=== PATIENT | female | born 2000 | race African-American/Black ===

== ENCOUNTER 2022-12-31 12:52 | Emergency (ER) | payer OTHER, SELFPAY ==
[2022-12-31] MEDS ORDERED: Acetaminophen 325 MG TAB ONE (13:36)
[2023-01-01 13:51] LABS: Reference Lab Name LABCORP
[2023-01-01 13:52] LABS: Ref Lab Test Ordered Ct/GC NAA throat
== END 2022-12-31 14:40 | disposition home or self-care (01) ==
LOC: ERS 12:52
DX: J02.9 Acute pharyngitis, unspecified (principal); R13.10 Dysphagia, unspecified
CPT/HCPCS: 87081; 87430; 99283

== ENCOUNTER 2024-07-24 10:52 | Emergency (ER) | payer OTHER, SELFPAY ==
[2024-07-24] MEDS ORDERED: Ondansetron PF 4 MG/2 ML Vial ONE (11:41)
[2024-07-24 11:43] LABS: #Basophils Less than 0.03 10x3/uL (0.0-0.2); #Eosinophils Less than 0.03 10x3/uL (0.0-0.7); %Basophils 0.4 % (0.0-1.0); %Eosinophils 0.2 % (0.0-10.0); %Lymphocytes 35.5 % (21.0-51.0); %Monocytes 7.1 % (0.0-10.0); %Neutrophils 56.6 % (42.0-75.0); Hematocrit 37.4 % (36.0-47.0); Hemoglobin 12.5 g/dL (12.0-16.0); Mean Corpuscular HGB CONC 33.4 g/dL (32.0-36.0); Mean Corpuscular Hemoglobin 29.4 pg (27.0-31.0); Mean Platelet Volume 9.3 fL (7.4-10.4); Platelet Count 262 10x3/uL (130-400); RBC Distribution Width 12.1 % (11.5-14.5); Red Blood Cell (RBC) Count 4.25 mill/uL (4.20-5.40)
[2024-07-24 12:05] LABS: BHCG - Serum POSITIVE (NEGATIVE); Pregs Control Background? CLEAR/WHITE (CLR/WHITE); Pregs Control Bar Appear? YES (CONTROL BAR)
[2024-07-24 12:15] LABS: ALT (SGPT) 9 U/L (8-55); AST (SGOT) 13 U/L (5-34); Albumin 4.1 g/dL (3.5-5.0); Alkaline Phosphatase 39 U/L (40-110); Anion Gap 14 mmol/L (10-20); BUN (Urea Nitrogen) 10 mg/dL (7.0-18.7); Bilirubin, Total 1.1 mg/dL (0.2-1.2); Calc. Creatinine Clearance 0 mL/min (70-130); Calcium 9.8 mg/dL (7.8-10.44); Carbon Dioxide 22 mmol/L (22-29); Chloride 101 mmol/L (98-107); Estimated GFR 106; Globulin 3.6 g/dL (2.4-3.5); Glucose 85 mg/dL (70-105); Lipase 17 U/L (8-78); Potassium 3.5 mmol/L (3.5-5.1); Protein, Total 7.7 g/dL (6.0-8.3); Sodium 133 mmol/L (136-145)
[2024-07-24 13:18] LABS: Bacteria/HPF None Seen HPF (None Seen); Bilirubin Negative (Negative); Blood, Urine Negative (Negative); CAUTI Indications for Culture Pelvic or flank pain; Glucose, Urine (Dipstick) Normal (Negative); Ketone, Urine 10 mg/dL (Negative); Leukocyte 75 Leu/uL (Negative); Nitrite Negative (Negative); Protein, Urine (Dipstick) 20 mg/dL (Neg-Trace); RBC/HPF None Seen HPF (0-3); Specific Gravity, Urine 1.007 (1.002-1.036); Squamous Epithelial Greater than 50 HPF (0-3); Urobilinogen Normal mg/dL (Less than 2); pH, Urine 6.5 (5.0-9.0)
[2024-07-24 13:34] LABS: Clarity Very Cloudy (Clear)
[2024-07-24 13:36] LABS: Urine Culture Reflex No No
== END 2024-07-24 14:08 | disposition home or self-care (01) ==
LOC: ERS 10:52
DX: O21.9 Vomiting of pregnancy, unspecified (principal); R05.9 Cough, unspecified; R09.81 Nasal congestion; Z3A.01 Less than 8 weeks gestation of pregnancy
CPT/HCPCS: 36415; 76801; 80053; 81001; 83690; 84702; 84703; 85025; 87428; 96374; J2405